=== PATIENT | female | born 1995 | race Caucasian/White ===

== ENCOUNTER 2016-10-15 10:09 | Emergency (ER) | payer MEDICAID ==
[2016-10-15 10:23] VITALS: BMI 20.7
--- NOTE | 2016-10-15 10:40 | ED PDOC ---
HPI: General Adult Time Seen by Provider: 10/15/16 10:32 Chief Complaint (Nursing): Flu-like Symptoms Chief Complaint (Provider): sore thoart History Per: Patient History/Exam Limitations: no limitations Additional Complaint(s): 20yo F in ED for eval of sore thoart x 2days with chills, change in voice, malaise. no rash no foreign travel. no drooling. Past Medical History Reviewed: Historical Data, Nursing Documentation, Vital Signs Vital Signs: Last Vital Signs Temp 101.1 F H 10/15/16 10:22 Pulse 99 H 10/15/16 10:22 Resp 16 10/15/16 10:22 BP 120/77 10/15/16 10:22 Pulse Ox 100 10/15/16 10:22 - Medical History PMH: No Chronic Diseases - Family History Family History: States: No Known Family Hx - Immunization History Hx Tetanus Toxoid Vaccination: No - Home Medications Home Medications: Ambulatory Orders Medication Instructions Recorded Amoxicillin [Amoxil 500 mg Cap] 500 mg PO BID #20 cap 10/15/16 - Allergies Allergies/Adverse Reactions: Allergies Allergy/AdvReac Type Severity Reaction Status Date / Time No Known Allergies Allergy Verified 10/15/16 10:29 Review of Systems ROS Statement: Except As Marked, All Systems Reviewed And Found Negative Review Of Systems: ROS cannot be obtained secondary to pt's inabilty to answer questions. Constitutional: Positive for: Fever, Chills ENT: Positive for: Throat Pain, Throat Swelling Respiratory: Negative for: Cough, Shortness of Breath Physical Exam - Reviewed Nursing Documentation Reviewed: Yes Vital Signs Reviewed: Yes - Physical Exam Appears: Positive for: Non-toxic, No Acute Distress, Uncomfortable Head Exam: Positive for: ATRAUMATIC, NORMAL INSPECTION, NORMOCEPHALIC Skin: Positive for: Normal Color, Warm, DRY Eye Exam: Positive for: EOMI, Normal appearance, PERRL ENT: Positive for: Pharyngeal Erythema, Tonsillar Exudate, Tonsillar Swelling Neck: Positive for: Normal, Painless ROM Cardiovascular/Chest: Positive for: Regular Rate, Rhythm Respiratory: Positive for: CNT, Normal Breath Sounds Neurologic/Psych: Positive for: Alert, Oriented - ECG O2 Sat by Pulse Oximetry: 100 Medical Decision Making Medical Decision Making: pt with swelling of lymph nodes, fever exudate and no cough. will treat with Amoxicillin and given decadron inED. f.u with pmd. Disposition - Clinical Impression Clinical Impression: Strep throat - Patient ED Disposition Is Patient to be Admitted: No Counseled Patient/Family Regarding: Diagnosis, Need For Followup, Rx Given - Disposition Disposition: Routine/Home Disposition Time: 10:40 Condition: STABLE Prescriptions: Amoxicillin [Amoxil 500 mg Cap] 500 mg PO BID #20 cap Instructions: Strep Throat (ED) Forms: [facility] (Welsh), [facility] ED School/Work Excuse
[2016-10-15 11:59] VITALS: BP 125/76; PULSE 78; RESP 18; TEMP 99.2; O2SAT 99
== END 2016-10-15 11:59 | disposition home or self-care (01) ==
LOC: H.ER 10:09
DX: J02.0 Streptococcal pharyngitis (principal)
CPT/HCPCS: 81025; 96372; 99283; J1100

== ENCOUNTER 2017-09-27 16:35 | Emergency (ER) | payer MEDICAID, OTHER ==
[2017-09-27 16:35] VITALS: BMI 20.7
[2017-09-27 16:40] VITALS: BP 121/75; PULSE 88; RESP 18; TEMP 98.6; O2SAT 99
--- NOTE | 2017-09-27 17:05 | ED PDOC ---
HPI: Female Pain Time Seen by Provider: 09/27/17 16:38 Chief Complaint (Nursing): Female Genitourinary Chief Complaint (Provider): Pain on urination x 2 days History Per: Patient History/Exam Limitations: no limitations Onset/Duration Of Symptoms: Days Current Symptoms Are (Timing): Still Present Additional Complaint(s): 21 yo female with no medical problems presents for evaluation of pain on urination x 2 days. No N/V/D. No fever/chills. No back pain. No abdominal pain. Pt denies vaginal discharge. Past Medical History Reviewed: Historical Data, Nursing Documentation, Vital Signs Vital Signs: Last Vital Signs Temp 98.6 F 09/27/17 16:39 Pulse 88 09/27/17 16:39 Resp 18 09/27/17 16:39 BP 121/75 09/27/17 16:39 Pulse Ox 99 09/27/17 16:39 - Medical History PMH: No Chronic Diseases - Surgical History Surgical History: No Surg Hx - Family History Family History: States: No Known Family Hx - Living Arrangements Living Arrangements: With Family - Social History Current smoker - smoking cessation education provided: No - Immunization History Hx Tetanus Toxoid Vaccination: No - Home Medications Home Medications: Ambulatory Orders Medication Instructions Recorded Amoxicillin [Amoxil 500 mg Cap] 500 mg PO BID #20 cap 10/15/16 Ciprofloxacin [Cipro] 500 mg PO BID #10 tab 09/27/17 - Allergies Allergies/Adverse Reactions: Allergies Allergy/AdvReac Type Severity Reaction Status Date / Time No Known Allergies Allergy Verified 10/15/16 10:29 Review of Systems ROS Statement: Except As Marked, All Systems Reviewed And Found Negative Constitutional: Negative for: Fever, Chills Gastrointestinal: Negative for: Nausea, Vomiting, Abdominal Pain Genitourinary Female: Positive for: Dysuria. Negative for: Pelvic Pain Musculoskeletal: Positive for: Back Pain Physical Exam - Reviewed Nursing Documentation Reviewed: Yes Vital Signs Reviewed: Yes - Physical Exam Appears: Positive for: Well, Non-toxic, No Acute Distress Head Exam: Positive for: ATRAUMATIC, NORMAL INSPECTION, NORMOCEPHALIC Skin: Positive for: Normal Color, Warm, DRY Eye Exam: Positive for: Normal appearance ENT: Positive for: Normal ENT Inspection Neck: Positive for: Normal, Painless ROM Cardiovascular/Chest: Positive for: Regular Rate, Rhythm Respiratory: Positive for: Normal Breath Sounds. Negative for: Accessory Muscle Use, Respiratory Distress Back: Positive for: Normal Inspection. Negative for: L CVA Tenderness, R CVA Tenderness Extremity: Positive for: Normal ROM Neurologic/Psych: Positive for: Alert, Oriented - ECG O2 Sat by Pulse Oximetry: 99 Disposition - Clinical Impression Clinical Impression: UTI (urinary tract infection) - Patient ED Disposition Is Patient to be Admitted: No Counseled Patient/Family Regarding: Diagnosis, Need For Followup, Rx Given - Disposition Referrals: [facility] [Outside] Disposition: Routine/Home Disposition Time: 17:02 Condition: GOOD Prescriptions: Ciprofloxacin [Cipro] 500 mg PO BID #10 tab Instructions: Urinary Tract Infections in Adults Forms: [facility] (Yakut)
== END 2017-09-27 17:10 | disposition home or self-care (01) ==
LOC: H.ER 16:35
DX: N39.0 Urinary tract infection, site not specified (principal)

== ENCOUNTER 2018-04-13 13:23 | Emergency (ER) | payer MEDICAID, OTHER ==
[2018-04-13 13:24] VITALS: BMI 20.7
[2018-04-13 13:33] VITALS: TEMP 97.4; O2SAT 99
[2018-04-13] MEDS ORDERED: Sodium Chloride 0.9% 1,000 ML IV SCH (14:15)
--- NOTE | 2018-04-13 14:32 | ED PDOC ---
HPI: Abdomen Time Seen by Provider: 04/13/18 13:53 Chief Complaint (Nursing): Abdominal Pain Chief Complaint (Provider): ABDOMINAL PAIN History Per: Patient (22 Y/O FEMALE LMP JAN 2018 HERE WITH NAUSEA/VOMITING/CRAMPY ABD PAIN TODAY. DENIES ANY FEVERS/CHILLS. DENIES ANY DYSURIA.) Past Medical History Reviewed: Historical Data, Nursing Documentation, Vital Signs Vital Signs: Last Vital Signs Temp 97.4 F L 04/13/18 13:28 Pulse 100 H 04/13/18 13:28 Resp 19 04/13/18 13:28 BP 115/75 04/13/18 13:28 Pulse Ox 99 04/13/18 13:28 - Family History Family History: States: No Known Family Hx - Immunization History Hx Tetanus Toxoid Vaccination: No - Home Medications Home Medications: Ambulatory Orders Medication Instructions Recorded Amoxicillin [Amoxil 500 mg Cap] 500 mg PO BID #20 cap 10/15/16 Ciprofloxacin [Cipro] 500 mg PO BID #10 tab 09/27/17 Ondansetron ODT [Zofran ODT] 4 mg PO Q8 PRN #10 odt 04/13/18 Pnv No.95/Ferrous Fum/Folic AC 1 each PO DAILY #30 tablet 04/13/18 [ Vitamins Tablet] - Allergies Allergies/Adverse Reactions: Allergies Allergy/AdvReac Type Severity Reaction Status Date / Time No Known Allergies Allergy Verified 10/15/16 10:29 Review of Systems ROS Statement: Except As Marked, All Systems Reviewed And Found Negative Physical Exam - Reviewed Nursing Documentation Reviewed: Yes Vital Signs Reviewed: Yes - Physical Exam Appears: Positive for: Well, Non-toxic, No Acute Distress Head Exam: Positive for: ATRAUMATIC, NORMAL INSPECTION, NORMOCEPHALIC Skin: Positive for: Normal Color, Warm, DRY Eye Exam: Positive for: EOMI, Normal appearance, PERRL ENT: Positive for: Normal ENT Inspection Neck: Positive for: Normal, Painless ROM Cardiovascular/Chest: Positive for: Regular Rate, Rhythm Respiratory: Positive for: CNT, Normal Breath Sounds Gastrointestinal/Abdominal: Positive for: Normal Exam, Soft Back: Positive for: Normal Inspection Extremity: Positive for: Normal ROM Neurologic/Psych: Positive for: Alert, Oriented - Laboratory Results Result Diagrams: 04/13/18 14:00 04/13/18 14:00 - ECG O2 Sat by Pulse Oximetry: 99 - Progress ED Course And Treament: zofran 4mg iv x 1 dose NS 1 liter wide open Patient would like to go home after ultrasound. blood type O pos. beta hcg pending. US pelvic: IMPRESSION: Single live intrauterine gestation with average ultrasound age of 10 weeks, 1 day. heart rate 164 beats per minute. Cervix long and closed. Disposition - Clinical Impression Clinical Impression: Abdominal pain during - Patient ED Disposition Is Patient to be Admitted: No - Disposition [facility] Disposition: Routine/Home Disposition Time: 16:03 Condition: FAIR Prescriptions: Ondansetron ODT [Zofran ODT] 4 mg PO Q8 PRN #10 odt PRN Reason: Nausea/Vomiting Pnv No.95/Ferrous Fum/Folic AC [ Vitamins Tablet] 1 each PO DAILY #30 tablet Instructions: Threatened Miscarriage
[2018-04-13 14:50] LABS: BASO # 0.1 K/uL (0.0-0.2); BASO % 0.6 % (0.0-2.0); EOS # 0.4 K/uL (0.0-0.7); EOS % 4.1 % (0.0-4.0); HEMOGLOBIN 12.2 g/dL (12.0-16.0); LYMPH # 1.9 K/uL (1.0-4.3); LYMPH % 20.1 % (20.0-40.0); MEAN CELL VOLUME 91.4 fl (81.0-99.0); MEAN CORPUSCULAR HEMOGLOBIN 30.9 pg (27.0-31.0); MEAN CORPUSCULAR HGB CONC 33.9 g/dL (33.0-37.0); MEAN PLATELET VOLUME 10.5 fl (7.2-11.7); MONO # 0.7 K/uL (0.0-0.8); MONO % 7.4 % (0.0-10.0); NEUT # 6.5 K/uL (1.8-7.0); NEUT % 67.8 % (50.0-75.0); NRBC % 0.2 % (0.0-0.0); RBC 3.96 Mil/uL (3.80-5.20); RED CELL DISTRIBUTION WIDTH 13.1 % (11.5-14.5); WHITE BLOOD COUNT 9.6 K/uL (4.8-10.8)
--- NOTE | 2018-04-13 14:55 | US ---
Date of service: 04/13/2018 PROCEDURE: OB Pelvic Ultrasound HISTORY: R/O ECTOPIC LMP: 01/30/2018 COMPARISON: None available. FINDINGS: UTERUS: Gestational sac: Single intrauterine gestation. Measures 4.6 cm compatible with estimated gestational age of 10 weeks, 1 day Yolk sac: Measures 0.5 cm pole: [place]-rump length measures 3.3 cm compatible with estimated gestational age of 10 weeks, 1 day Heart rate: 164 bpm. age (Ultrasound estimated): 10 weeks, 1 day [place]-gestational hemorrhage: None. Date of delivery (Ultrasound estimated) : 11/08/2018 Uterus measures 10.4 x 6.2 x 8.0 cm. Normal in size and appearance. CERVIX: Measures 4.3 cm. Long and closed. No cervical abnormality seen. RIGHT OVARY: Measures 2.3 x 1.3 x 1.8 cm. No mass lesion. Normal flow. LEFT OVARY: Measures 2.4 x 1.3 x 2.1 cm. No solid mass. Normal flow. FREE FLUID: None. OTHER FINDINGS: None. IMPRESSION: Single live intrauterine gestation with average ultrasound age of 10 weeks, 1 day. heart rate 164 beats per minute. Cervix long and closed.
[2018-04-13 15:16] LABS: ALB/GLOB RATIO 1.4 (1.0-2.1); ALBUMIN 4.4 g/dL (3.5-5.0); ALT/SGPT 19 U/L (9-52); AST/SGOT 27 U/L (14-36); BLOOD UREA NITROGEN 10 mg/dl (7-17); CALCIUM 9.4 mg/dL (8.4-10.2); GFR NON-AFRICAN AMERICAN > 60
[2018-04-13 15:20] LABS: SQUAMOUS EPITHIAL 15 /hpf (0-5); URINE BACTERIA RARE (<OCC); URINE BILIRUBIN NEGATIVE (NEGATIVE); URINE BLOOD NEGATIVE (NEGATIVE); URINE CLARITY CLOUDY (Clear); URINE COLOR YELLOW (YELLOW); URINE GLUCOSE (UA) NEG (NEGATIVE); URINE LEUKOCYTE ESTERASE NEG Leu/uL (Negative); URINE PROTEIN 30 mg/dL (NEGATIVE); URINE UROBILINOGEN 0.2-1.0 mg/dL (0.2-1.0)
[2018-04-13 16:12] VITALS: BP 118/74; PULSE 88; RESP 18
== END 2018-04-13 16:18 | disposition home or self-care (01) ==
LOC: H.ER 13:23
DX: O26.91 Pregnancy related conditions, unspecified, first trimester (principal)
CPT/HCPCS: 76817; 80053; 81003; 81025; 84702; 85025; 86850; 86900; 87086; 96361; 96374; 99284; J2405; J7030